=== PATIENT | male | born 1975 | race African-American/Black ===

== ENCOUNTER 2021-09-01 09:01 | Emergency (ER) | payer MEDICAID, OTHER ==
[~2021-09-01] VITALS: Ht 203.2 cm; Wt 99.8 kg
[2021-09-01 09:15] VITALS: BP 118/78
[2021-09-01] MEDS ORDERED: SODIUM CHLORIDE 0.9% 1,000 ML IV ONE (09:30)
[2021-09-01 10:11] LABS: Albumin 3.3 g/dL (3.4-5.0); Calcium 8.6 mg/dL (8.5-10.1); Potassium 3.7 mmol/L (3.5-5.1)
[2021-09-01 10:15] LABS: BUN/Creatinine Ratio 14.4; Bilirubin, Total 0.2 mg/dL (0.2-1.0)
[2021-09-01 10:28] LABS: Basophils # (auto) 0 10 ^3/uL (0-0.2); Basophils % (auto) 0.2 % (0.0-2.0); Eosinophils # (auto) 0.3 10 ^3/uL (0-0.8); Eosinophils % (auto) 6.2 % (0.0-7.0); Hematocrit 42.4 % (41.0-53.0); Hemoglobin 14.3 g/dL (13.5-17.5); Lymphocytes # (auto) 1.5 10 ^3/uL (0.4-5.4); Lymphocytes % (auto) 26.6 % (10.0-50.0); Mean Corpuscular Hemoglobin 29.1 pg (28.0-32.0); Mean Corpuscular Hgb Conc. 33.8 g/dL (32.0-36.0); Mean Corpuscular Volume 86.3 fL (80.0-100.0); Monocytes # (auto) 0.6 10 ^3/uL (0-1.3); Monocytes % (auto) 10.3 % (0.0-12.0); Neutrophils # (auto) 3.2 10 ^3/uL (1.6-8.6); Neutrophils % (auto) 56.7 % (37.0-80.0); Nucleated Red Blood Cells % 0.1 %; Red Blood Cells 4.91 10^6/uL (4.5-5.90); Red Cell Distribution Width 15.9 % (11.8-14.3); White Blood Cell 5.6 10^3/uL (4.4-10.8)
[2021-09-01] MEDS ORDERED: CIPR-173 PO (11:00)
[2021-09-01] MEDS ORDERED: LOPE2TAB99 PO (11:00)
== END 2021-09-01 11:21 | disposition home or self-care (01) ==
LOC: EDBD 09:01 → ER 09:01
DX: R19.7 Diarrhea, unspecified (principal); F17.210 Nicotine dependence, cigarettes, uncomplicated; Z88.0 Allergy status to penicillin; Z88.6 Allergy status to analgesic agent
CPT/HCPCS: 36415; 80053; 83690; 85025; 96360; 99283; J7030

== ENCOUNTER 2021-10-03 16:18 | Inpatient (IN) | payer MEDICAID ==
[~2021-10-03] VITALS: Ht 203.2 cm; Wt 158.0 kg
[~2021-10-03 16:18] MED LIST: CIPR-173 PO; LOPE2TAB99 PO
[2021-10-03 22:28] LABS: Basophils # (auto) 0.2 10 ^3/uL (0-0.2); Eosinophils # (auto) 0.5 10 ^3/uL (0-0.8); Eosinophils % (auto) 5.9 % (0.0-7.0); Hematocrit 34.8 % (41.0-53.0); Lymphocytes # (auto) 1.5 10 ^3/uL (0.4-5.4); Lymphocytes % (auto) 18.4 % (10.0-50.0); Mean Corpuscular Hemoglobin 29.5 pg (28.0-32.0); Mean Corpuscular Hgb Conc. 34.4 g/dL (32.0-36.0); Monocytes # (auto) 0.6 10 ^3/uL (0-1.3); Monocytes % (auto) 7.4 % (0.0-12.0); Neutrophils # (auto) 5.4 10 ^3/uL (1.6-8.6); Neutrophils % (auto) 66.3 % (37.0-80.0); Nucleated Red Blood Cells % 0.1 %; Red Blood Cells 4.05 10^6/uL (4.5-5.90); Red Cell Distribution Width 16.5 % (11.8-14.3); White Blood Cell 8.2 10^3/uL (4.4-10.8)
[2021-10-03] MEDS ORDERED: KETOROLAC TROMETH 30 MG/ML 1ML VIAL IV ONE ×2 (22:30)
[2021-10-03 22:41] LABS: INR 0.99 (0.9-1.15)
[2021-10-03 22:45] LABS: Albumin 3.4 g/dL (3.4-5.0); Calcium 8.9 mg/dL (8.5-10.1); Potassium 3.9 mmol/L (3.5-5.1)
[2021-10-03 22:47] LABS: BUN/Creatinine Ratio 14.8
[2021-10-03 22:50] LABS: Bilirubin, Total 0.3 mg/dL (0.2-1.0); Total Protein 8.4 g/dL (6.4-8.2)
[2021-10-03] MEDS ORDERED: MORPHINE SULFATE INJECTION 2 MG/ML SYRG IV PRN (23:00)
[2021-10-03] MEDS ORDERED: NITROGLYCERIN 0.4 MG SL TAB SL PRN (23:00)
[2021-10-03] MEDS ORDERED: SODIUM CHLORIDE 0.9% 1,000 ML IV ONE (23:00)
[2021-10-03] MEDS: ENOXAPARIN SOD 120 MG/0.8 ML SYRINGE SC SCH (23:22)
[2021-10-04 02:00] VITALS: BP 116/64
[2021-10-04] MEDS ORDERED: GABA-339 PO (02:26)
[2021-10-04] MEDS ORDERED: METF500S PO (02:28)
[2021-10-04] MEDS ORDERED: LORA10CA7 PO (02:29)
[2021-10-04 05:00] VITALS: BP 116/64
[2021-10-04 06:12] LABS: Basophils # (auto) 0 10 ^3/uL (0-0.2); Basophils % (auto) 0.6 % (0.0-2.0); Eosinophils # (auto) 0.5 10 ^3/uL (0-0.8); Eosinophils % (auto) 8.2 % (0.0-7.0); Hematocrit 32.6 % (41.0-53.0); Hemoglobin 11.5 g/dL (13.5-17.5); Lymphocytes # (auto) 1.6 10 ^3/uL (0.4-5.4); Lymphocytes % (auto) 23.3 % (10.0-50.0); Mean Corpuscular Hemoglobin 30.3 pg (28.0-32.0); Mean Corpuscular Hgb Conc. 35.2 g/dL (32.0-36.0); Mean Corpuscular Volume 85.9 fL (80.0-100.0); Monocytes # (auto) 0.6 10 ^3/uL (0-1.3); Monocytes % (auto) 9.6 % (0.0-12.0); Neutrophils # (auto) 3.9 10 ^3/uL (1.6-8.6); Neutrophils % (auto) 58.3 % (37.0-80.0); Nucleated Red Blood Cells % 0.2 %; Red Blood Cells 3.79 10^6/uL (4.5-5.90); Red Cell Distribution Width 16.7 % (11.8-14.3); White Blood Cell 6.7 10^3/uL (4.4-10.8)
[2021-10-04 06:35] LABS: Calcium 8.9 mg/dL (8.5-10.1); Potassium 3.8 mmol/L (3.5-5.1)
[2021-10-04 08:59] VITALS: BP 90/50
[2021-10-04] MEDS: ENOXAPARIN SOD 120 MG/0.8 ML SYRINGE SC SCH ×2 (10:09→21:50)
[2021-10-04] MEDS: MORPHINE SULFATE 4 MG/ML SYR/VIAL IV PRN ×3 (10:13→23:29)
[2021-10-04] MEDS: ONDANSETRON HCL 4 MG/2 ML VIAL IV PRN ×2 (10:13→16:23)
[2021-10-04 13:00] VITALS: BP 103/65
[2021-10-04] MEDS ORDERED: APIX5TAB PO (13:51)
[2021-10-04] MEDS ORDERED: IOHEXOL 350 MG/ML 100ML IJ ONE (14:00)
[2021-10-04 22:00] VITALS: BP 97/55
[2021-10-05] MEDS: MORPHINE SULFATE 4 MG/ML SYR/VIAL IV PRN ×2 (04:50→10:42)
[2021-10-05 05:00] VITALS: BP 112/62
[2021-10-05] MEDS: ONDANSETRON HCL 4 MG/2 ML VIAL IV PRN (08:04)
[2021-10-05 09:00] VITALS: BP 102/59
[2021-10-05] MEDS: ENOXAPARIN SOD 120 MG/0.8 ML SYRINGE SC SCH (09:47)
[2021-10-05 11:12] VITALS: BP 105/62
[2021-10-05] MEDS ORDERED: IBUP600T27 PO (11:38)
== END 2021-10-05 15:30 | disposition home or self-care (01) | DRG 197 ==
LOC: ER 16:18 → EDBD 16:18 → TELE 22:55 → TELE-WESTW 10-04 01:33
PROVIDERS: ADMIT Hospitalist; ATTEND Hospitalist
DX: I82.412 Acute embolism and thrombosis of left femoral vein (principal); I26.99 Other pulmonary embolism without acute cor pulmonale; F20.9 Schizophrenia, unspecified; F31.9 Bipolar disorder, unspecified; F17.210 Nicotine dependence, cigarettes, uncomplicated; Z20.822 Contact with and (suspected) exposure to COVID-19; J45.909 Unspecified asthma, uncomplicated; R19.7 Diarrhea, unspecified; Z88.0 Allergy status to penicillin; Z88.8 Allergy status to other drugs, medicaments and biological substances; Z82.49 Family history of ischemic heart disease and other diseases of the circulatory system
CPT/HCPCS: 36415; 71045; 71275; 80048; 80053; 85025; 85610; 93005; 93306; 93971; 96361; 96374; G0378; J1885; J2405

== ENCOUNTER 2021-10-06 15:49 | Emergency (ER) | payer MEDICAID ==
[~2021-10-06] VITALS: Ht 188 cm; Wt 83.9 kg
[~2021-10-06 15:49] MED LIST changes: +APIX5TAB PO; -CIPR-173 PO; +GABA-339 PO; +IBUP600T27 PO; +LORA10CA7 PO; +METF500S PO
[2021-10-06] MEDS ORDERED: ENOXAPARIN SOD 80 MG/0.8ML SYRINGE SC ONE (16:45)
[2021-10-06 17:31] LABS: Eosinophils # (auto) 0.5 10 ^3/uL (0-0.8); Nucleated Red Blood Cells % 0.1 %
[2021-10-06 17:33] LABS: Albumin 3.2 g/dL (3.4-5.0); Potassium 3.4 mmol/L (3.5-5.1)
[2021-10-06 17:36] LABS: Bilirubin, Total 0.7 mg/dL (0.2-1.0); Total Protein 8.4 g/dL (6.4-8.2)
[2021-10-06 17:41] LABS: Basophils # (auto) 0 10 ^3/uL (0-0.2); Basophils % (auto) 0.4 % (0.0-2.0); Eosinophils % (auto) 6.4 % (0.0-7.0); Hematocrit 33.6 % (41.0-53.0); Hemoglobin 11.3 g/dL (13.5-17.5); Lymphocytes # (auto) 0.9 10 ^3/uL (0.4-5.4); Lymphocytes % (auto) 11.7 % (10.0-50.0); Mean Corpuscular Hemoglobin 29.1 pg (28.0-32.0); Mean Corpuscular Hgb Conc. 33.8 g/dL (32.0-36.0); Mean Corpuscular Volume 86.3 fL (80.0-100.0); Monocytes # (auto) 0.7 10 ^3/uL (0-1.3); Monocytes % (auto) 8.5 % (0.0-12.0); Neutrophils # (auto) 5.7 10 ^3/uL (1.6-8.6); Red Cell Distribution Width 16.6 % (11.8-14.3); White Blood Cell 7.8 10^3/uL (4.4-10.8)
[2021-10-06 21:30] LABS: INR 1.04 (0.9-1.15)
[2021-10-06 22:00] VITALS: BP 107/77
== END 2021-10-06 22:36 | disposition short-term general hospital (02) ==
LOC: EDBD 15:49 → ER 15:49
DX: I82.4Z2 Acute embolism and thrombosis of unspecified deep veins of left distal lower extremity (principal); J45.909 Unspecified asthma, uncomplicated; F17.210 Nicotine dependence, cigarettes, uncomplicated; Z79.899 Other long term (current) drug therapy; Z79.1 Long term (current) use of non-steroidal anti-inflammatories (NSAID); Z88.0 Allergy status to penicillin; Z88.8 Allergy status to other drugs, medicaments and biological substances; Z20.822 Contact with and (suspected) exposure to COVID-19
CPT/HCPCS: 36415; 80053; 85025; 85610; 87426; 93005; 93971; 96372; 99285; J1650